=== PATIENT | female | born 1955 | race Caucasian/White ===

== ENCOUNTER 2019-01-25 11:41 | Emergency (ER) | payer BC ==
[2019-01-25] MEDS ORDERED: KETOROLAC 15 MG/ML VIAL IM STA (12:10)
--- NOTE | 2019-01-25 12:34 | ED Physician Documentation ---
PD HPI MAJOR TRAUMA - Stated complaint Stated Complaint: GLF/L SHOULDER INJ - Chief complaint Chief Complaint: Trauma Ext - History obtained from History obtained from: Patient - History of Present Illness Mechanism of injury: Fell Where injury occurred: Other (down 4 stairs) Injury(ies) location: Back, Left Uppper Extremity, Other (left lateral chest) Quality of pain: Pain, Throbbing, Sharp Associated symptoms: No: LOC, AMS, Amnesia, Seizures, Ear drainage, Nasal drainage, Neck pain, Weakness, Paresthesias, Dyspnea, Nausea / vomiting, Hematemesis, Abdominal distension Symptoms improve with: Rest Worsens with: Movement, Palpation Contributing factors: No: Anticoagulated, Intoxicated Similar symptoms before: Has not had sx before Recently seen: Not recently seen - Treatment prior to arrival Treatment prior to arrival: Took vicodin prior to arrival - Additional information Additional information: patient had an unwitnessed fall down 4 stairs last night onto her left upper back and shoulder. Reports back rib pain and clavicle/shoulder and arm pain. Denies LOC. Does not take blood thinners. She went to sleep and woke up with persistent rib pain. She has been ambulatory since then. Denies neck pain or injury Denies chest pain, sob. Denies abdominal pain. Denies mid back pain or spinal pain. Denies lower extremity pain. No weakness or numbness. Review of Systems Ten Systems: 10 systems reviewed and negative Constitutional: denies: Fever, Chills Cardiac: denies: Chest pain / pressure Respiratory: denies: Dyspnea, Cough GI: denies: Abdominal Pain, Nausea, Vomiting Skin: reports: Reviewed and negative Musculoskeletal: reports: Back pain, Extremity pain, Joint swelling. denies: Neck pain Neurologic: denies: Generalized weakness, Focal weakness, Numbness PD PAST MEDICAL HISTORY - Past Medical History Past Medical History: Yes Other Past Medical History: hemochromatosis, psoriatic arthritis - Allergies Allergies/Adverse Reactions: Allergies Allergy/AdvReac Type Severity Reaction Status Date / Time No Known Drug Allergies Allergy Verified 01/25/19 11:51 PD ED PE NORMAL - Vitals Vital signs reviewed: Yes - General General: Alert and oriented X 3, No acute distress, Well developed/nourished - HEENT HEENT: Atraumatic, PERRL, EOMI, Moist mucous membranes, Pharynx benign. No: Other (no signs of trauma) - Neck Neck: Supple, no meningeal sign, No bony TTP, No JVD - Cardiac Cardiac: RRR, No murmur, No gallop, No rub - Respiratory Respiratory: No respiratory distress, Clear bilaterally, Other (Left clavicle deformity, swelling. No anterior chest wall tenderness. Pt does have Left lateral chest wall tenderness.) - Abdomen Abdomen: Normal bowel sounds, Soft, Non tender, Non distended - Female Female : Deferred - Rectal Rectal: Deferred - Back Back: No CVA TTP, No spinal TTP, Other (left posterolateral thoracic rib tenderness) - Derm Derm: Normal color, Warm and dry, Other (mild L forearm abrasion ) - Extremities Extremities: No deformity, Normal ROM s pain, No edema, No calf tenderness / cord, Other (Reduced L shoulder movement due to pain. No deformity or tenderness of the shoulder, elbow or forearm/wrist.) - Neuro Neuro: Alert and oriented X 3, No motor deficit, No sensory deficit, Normal speech, Other (normal gait) Eye Opening: Spontaneous Motor: Obeys Commands Verbal: Oriented GCS Score: 15 - Psych Psych: Normal mood, Normal affect PD ED PE EXPANDED - General General: Alert, No acute distress, In Pain Results - Vitals Vitals: Vital Signs - 24 hr 01/25/19 01/25/19 01/25/19 11:51 14:15 14:52 Temperature 36.8 C Heart Rate 88 72 74 Respiratory 16 18 16 Rate Blood Pressure 122/65 121/75 128/81 H O2 Saturation 95 98 98 01/25/19 01/25/19 01/25/19 15:42 16:09 16:23 Temperature Heart Rate 78 75 82 Respiratory 18 16 16 Rate Blood Pressure 129/82 H 140/75 H 165/97 H O2 Saturation 98 96 98 01/25/19 01/25/19 01/25/19 16:30 16:35 17:04 Temperature Heart Rate 90 91 78 Respiratory 16 16 16 Rate Blood Pressure 157/78 H 147/82 H 118/82 H O2 Saturation 98 97 98 Oxygen O2 Source Room air - Labs Labs: Laboratory Tests 01/25/19 01/25/19 01/25/19 13:15 13:15 15:56 WBC 7.4 RBC 3.35 L Hgb 11.5 L Hct 32.9 L MCV 98.3 MCH 34.2 H MCHC 34.8 RDW 12.5 Plt Count 242 MPV 6.4 L Neut # (Auto) 5.9 Lymph # (Auto) 1.1 L [place] # (Auto) 0.3 Eos # (Auto) 0.0 Baso # (Auto) 0.0 Absolute Nucleated RBC 0.00 Nucleated RBC % 0.0 Sodium 130 L Potassium 4.0 Chloride 95 L Carbon Dioxide 23 Anion Gap 12.0 BUN 17 Creatinine 0.7 Estimated GFR (MDRD) 85 L Glucose 113 H Calcium 9.2 Total Bilirubin 0.5 Direct Bilirubin 0.1 AST 54 H ALT 50 Alkaline Phosphatase 89 Total Protein 8.6 H Albumin 4.3 Globulin 4.3 H Lipase 52 H Urine Color Urine Clarity Urine pH Ur Specific [place] Urine Protein Urine Glucose (UA) Urine Ketones Urine Occult Blood Urine Nitrite Urine Bilirubin Urine Urobilinogen Ur Leukocyte Esterase Urine RBC Urine WBC Ur Squamous Epith Cells Urine Bacteria Urine Casts Ur Microscopic Review Urine Culture Comments 01/25/19 15:57 WBC RBC Hgb Hct MCV MCH MCHC RDW Plt Count MPV Neut # (Auto) Lymph # (Auto) [place] # (Auto) Eos # (Auto) Baso # (Auto) Absolute Nucleated RBC Nucleated RBC % Sodium Potassium Chloride Carbon Dioxide Anion Gap BUN Creatinine Estimated GFR (MDRD) Glucose Calcium Total Bilirubin Direct Bilirubin AST ALT Alkaline Phosphatase Total Protein Albumin Globulin Lipase Urine Color YELLOW Urine Clarity HAZY Urine pH 6.0 Ur Specific [place] <=1.005 Urine Protein NEGATIVE Urine Glucose (UA) NEGATIVE Urine Ketones TRACE Urine Occult Blood MODERATE H Urine Nitrite NEGATIVE Urine Bilirubin NEGATIVE Urine Urobilinogen 0.2 (NORMAL) Ur Leukocyte Esterase NEGATIVE Urine RBC 0-5 Urine WBC 6-10 H Ur Squamous Epith Cells RARE Squamous Urine Bacteria Few Urine Casts 6-10 Hyaline Casts Ur Microscopic Review INDICATED Urine Culture Comments INDICATED mild anemia, mild hyonatremia - Rads (name of study) No standard instances Radiology: Final report received (L 3rd-12th rib fractures, L clavicle fracture displaced, no intraabdominal injury, negative head CT except for spehnoid sinusitis vs bleeding into sinus. ), See rad report Procedures - FAST exam (time) No standard instances FAST exam: No: Free fluid RUQ, Free fluid LUQ, Free fluid suprapubic, Pericardial effusion, Pneumothorax, right, Pneumothorax, left PD MEDICAL DECISION MAKING - ED course Complexity details: reviewed results, re-evaluated patient, considered differential, d/w patient, d/w vendor management consultant ED course: 63 y/o F with fall down 4 stairs last night onto back with multiple rib fractures 3-12 with L clavicle fracture and L pulmonary contusion. Requires transfer to Trauma center for admission, pain control, monitoring and pulmonary toilet. Given degree of injuries on CT pt sent back to CT for trauma marion scan. CT abd/pelvis is neg for acute injury. Pt only has 1 kidney. Was given multiple fluid boluses here and her creatinine is 0.7. CT head also neg. Spinal CTs negative for acute abnormality. Not currently requiring oxygen. Pain controlled with narcotics, lidoderm patch and ketamine here. Pt stable for transfer to [facility] via ground ALS. - Critical Care Time Includes: Direct patient care, Review records, Reassess patient (s), Coordinate care, Medical consult Data interpretation: Labs, CXR, See progress note (management of trauma pain, pulmonary contusion) Departure - Departure Disposition: 02 Transfer Acute Care Hosp Clinical Impression: Ribs, multiple fractures Qualifiers: Encounter type: initial encounter Fracture type: closed Laterality: left Qualified Code(s): S22.42XA - Multiple fractures of ribs, left side, initial en counter for closed fracture Clavicle fracture, shaft Qualifiers: Encounter type: initial encounter Fracture type: closed Fracture alignment: displaced Laterality: left Qualified Code(s): S42.022A - Displaced fracture of shaft of left clavicle, initial encounter for closed fracture Pulmonary contusion Qualifiers: Encounter type: initial encounter Laterality: left Qualified Code(s): S27.321A - Contusion of lung, unilateral, initial encounter Condition: Fair Record reviewed to determine appropriate education?: Yes
[2019-01-25] MEDS ORDERED: HYDROmorphone 1 MG/ML CARPUJECT IVP STA ×4 (13:09→18:10)
[2019-01-25] MEDS ORDERED: IOVERSOL 320 100 ML VIAL IVP ONE ×4 (13:22→16:46)
[2019-01-25 13:24] LABS: BASOPHILS % (AUTO) 0.2 %; EOSINOPHILS % (AUTO) 0.1 %; HGB - HEMOGLOBIN 11.5 g/dL (12.0-16.0); LYMPHOCYTES # (AUTO) 1.1 10^3/uL (1.5-3.5); LYMPHOCYTES % (AUTO) 14.6 %; MEAN CORPUSCULAR HEMOGLOBIN 34.2 pg (27.0-31.0); MEAN CORPUSCULAR HGB CONC 34.8 g/dL (32.0-36.0); MEAN CORPUSCULAR VOLUME 98.3 fL (81.0-99.0); MEAN PLATELET VOLUME 6.4 fL (7.9-10.8); MONOCYTES # (AUTO) 0.3 10^3/uL (0.0-1.0); MONOCYTES % (AUTO) 4.4 %; NEUTROPHILS # (AUTO) 5.9 10^3/uL (1.5-6.6); NEUTROPHILS % (AUTO) 80.7 %; PLT - PLATELET COUNT 242 10^3/uL (130-450); RED BLOOD COUNT 3.35 10^6/uL (4.20-5.40); RED CELL DISTRIBUTION WIDTH 12.5 % (12.0-15.0); WHITE BLOOD COUNT 7.4 x10^3/uL (4.8-10.8)
[2019-01-25 13:36] LABS: CREATININE 0.7 mg/dL (0.4-1.0)
[2019-01-25] MEDS ORDERED: ONDANSETRON 4 MG/2 ML VIAL IVP STA (13:37)
[2019-01-25] MEDS ORDERED: SODIUM CHLORIDE 0.9% 1,000 ML IV ONE ×3 (13:37→16:35)
--- NOTE | 2019-01-25 13:40 | XRAY Report ---
Reason: fall down stairs, posterior L rib pain Procedure Date: 01/25/2019 Accession Number: [id number] / [id number] Procedure: XR - Ribs w/PA Chest LT CPT Code: FULL RESULT: EXAM: LEFT RIB RADIOGRAPHY EXAM DATE: 01/25/2019 01:01 PM. CLINICAL HISTORY: Fall down stairs, posterior L rib pain. COMPARISON: None. TECHNIQUE: 1 view of the chest and 2 views of the ribs. FINDINGS: Bones: Angulated fractures of the left third through eighth ribs. Displaced fracture of the mid left clavicle. Lungs: No focal opacities. No pneumothorax. No pleural effusions. Mediastinum: Heart and mediastinal contours are unremarkable. Other: None. IMPRESSION: 1. Angulated fractures of the left third through eighth ribs. 2. Displaced fracture of the mid left clavicle. RADIA
--- NOTE | 2019-01-25 13:42 | XRAY Report ---
Reason: shoulder pain, fall down stairs Procedure Date: 01/25/2019 Accession Number: [id number] / [id number] Procedure: XR - Shoulder 2 View LT CPT Code: FULL RESULT: EXAM: LEFT SHOULDER RADIOGRAPHY EXAM DATE: 01/25/2019 01:01 PM. CLINICAL HISTORY: Shoulder pain, fall down stairs. COMPARISON: None. TECHNIQUE: 2 views. FINDINGS: Bones: Angulated fractures of the left first through eighth ribs. Angulated fracture of the mid left clavicle. Joints: The glenohumeral and acromioclavicular joints are normal. Soft tissues: The visualized hemithorax is unremarkable. No soft tissue swelling. IMPRESSION: 1. Angulated fractures of the left first through eighth ribs. 2. Angulated fracture of the mid left clavicle. RADIA
[2019-01-25 13:44] LABS: CALCIUM 9.2 mg/dL (8.5-10.3)
--- NOTE | 2019-01-25 14:33 | CT Report ---
Reason: rib fractures, upper left back pain Procedure Date: 01/25/2019 Accession Number: [id number] / [id number] Procedure: CT - CHEST W CPT Code: FULL RESULT: EXAM: CT CHEST EXAM DATE: 01/25/2019 02:12 PM. CLINICAL HISTORY: Rib fractures, upper left back pain. COMPARISONS: RIBS W/PA CHEST LT 01/25/2019 12:27 PM. TECHNIQUE: Routine helical CT imaging was performed through the chest. IV contrast: 80 mL Optiray 320. Reconstructions: Coronal and sagittal. In accordance with CT protocol optimization, one or more of the following dose reduction techniques were utilized for this exam: automated exposure control, adjustment of mA and/or KV based on patient size, or use of iterative reconstructive technique. FINDINGS: Lungs/Pleura: There is left basilar greater than right basilar pulmonary consolidation, mild amount without pleural effusion or pneumothorax detected. Mediastinum: Normal. No adenopathy or masses. The heart and great vessels are normal. Bones: Comminuted midclavicular fracture on the left, redemonstrated. The left 3rd through 12th ribs are confirmed fractured. Visualized Abdomen: Status post left nephrectomy with no splenic or hepatic laceration detected, both organs are fully in field of view. Other: None. IMPRESSION: Fractures of the left third through 12th ribs. No underlying pneumothorax or hemothorax. Midclavicular fracture on the left. Small amount of consolidation, pulmonary contusion versus atelectasis due to splinting. RADIA
[2019-01-25] MEDS ORDERED: LIDOCAINE PATCH 5% TOP STA (14:49)
[2019-01-25 16:11] LABS: BILIRUBIN,URINE NEGATIVE (NEGATIVE); GLUCOSE, URINE (UA) NEGATIVE (NEGATIVE); KETONES,URINE (UA) TRACE mg/dL (NEGATIVE); LEUKOCYTE ESTERASE, URINE NEGATIVE (NEGATIVE); NITRITE,URINE NEGATIVE (NEGATIVE); OCCULT BLOOD,URINE MODERATE (NEGATIVE); PROTEIN,URINE NEGATIVE (NEGATIVE); UROBILINOGEN,URINE 0.2 (NORMAL) E.U./dL (NORMAL)
[2019-01-25] MEDS ORDERED: KETAMINE 500 MG/10 ML VIAL IVP STA (16:14)
[2019-01-25 16:26] LABS: ALBUMIN 4.3 g/dL (3.2-5.5); BILIRUBIN,DIRECT 0.1 mg/dL (0.1-0.5); BILIRUBIN,TOTAL 0.5 mg/dL (0.2-1.0); TOTAL PROTEIN 8.6 g/dL (6.7-8.2)
[2019-01-25 16:35] LABS: CLARITY,URINE HAZY (CLEAR); RBC,URINE 0-5 /HPF (0-5); SQUAMOUS EPITHELIAL CELL,UR RARE Squamous (<= Few)
[2019-01-25 16:36] LABS: BACTERIA,URINE Few /HPF (None Seen); CASTS, URINE 6-10 Hyaline Casts /LPF
--- NOTE | 2019-01-25 17:40 | CT Report ---
Reason: rib fractures Procedure Date: 01/25/2019 Accession Number: [id number] / [id number] Procedure: CT - Abdomen/Pelvis W CPT Code: FULL RESULT: EXAM: CT ABDOMEN AND PELVIS EXAM DATE: 01/25/2019 05:17 PM. CLINICAL HISTORY: Status post fall, rib fractures, rule out abdominal pelvic trauma. COMPARISONS: Correlation with CHEST W/ 01/25/2019 2:03 PM. TECHNIQUE: Routine helical CT imaging was performed through the abdomen and pelvis. IV contrast: 80 cc Optiray 320. Enteric contrast: No. Reconstructions: Coronal and sagittal. In accordance with CT protocol optimization, one or more of the following dose reduction techniques were utilized for this exam: automated exposure control, adjustment of mA and/or KV based on patient size, or use of iterative reconstructive technique. FINDINGS: Lung Bases: Some bilaterally symmetric dependent atelectasis present at the lung bases. No pneumothorax or effusions identified. No consolidation or edema. Liver: Normal. No masses. Gallbladder/Bile Ducts: Unremarkable. Spleen: Normal. Pancreas: Normal. Adrenal Glands: Normal. Kidneys: The left kidney is surgically absent with no mass lesion in the renal fossa. Mild physiologic hydronephrosis and hydroureter has developed, new compared to the recently performed chest CT consistent with elevated fluid from contrast administration. Extensive excreted contrast now present in the collecting system. No perinephric edema. No evidence for renal trauma. Peritoneal Cavity/Bowel: Mild primarily distal colonic diverticulosis present. No bowel obstruction, wall thickening or mass lesion evident. No free fluid, free air or adenopathy. The appendix is well visualized and normal. Pelvic Organs: The urinary bladder is partially obscured by artifact from bilateral hip prosthesis. Excreted contrast fills the bladder lumen. No wall thickening or evidence of rupture. The rectum and vaginal cuff are within normal limits. The uterus is surgically absent. No adnexal masses. Vasculature: No aneurysms or other significant abnormality. Bones: No vertebral body compression fracture or other spinal fracture identified. Bilateral hip prosthesis are normally located. Multiple posterior left lower rib fractures identified as seen on CT. Other: None. IMPRESSION: 1. No acute intra-abdominal trauma evident. No free air. 2. Surgically absent left kidney. 3. Multiple left lower rib fractures as seen on concurrent chest CT. 4. Bibasilar atelectasis evident without evidence of pneumothorax. 5. Mild distal colonic diverticulosis. RADIA
--- NOTE | 2019-01-25 17:42 | CT Report ---
Reason: trauma, fall down stairs Procedure Date: 01/25/2019 Accession Number: [id number] / [id number] Procedure: CT - HEAD WO CPT Code: FULL RESULT: EXAM: CT HEAD EXAM DATE: 01/25/2019 05:17 PM. CLINICAL HISTORY: Trauma, pain. COMPARISON: None. TECHNIQUE: Multiaxial CT images were obtained from the foramen magnum to the vertex. Reformats: Sagittal and coronal. IV contrast: None. In accordance with CT protocol optimization, one or more of the following dose reduction techniques were utilized for this exam: automated exposure control, adjustment of mA and/or KV based on patient size, or use of iterative reconstructive technique. FINDINGS: Parenchyma: No intraparenchymal hemorrhage. No evidence of mass, midline shift, or CT findings of acute infarction. Hinojosa-white differentiation is distinct. Diffuse chronic microangiopathic white matter changes. Extraaxial Spaces: Normal for age. No subdural or epidural collections. Ventricles: The ventricles and cortical sulci are enlarged, consistent with age-related tissue loss. Sinuses and orbits: Sphenoid sinus air-fluid level. Minimal mucosal thickening in other visualized paranasal sinuses. Bones: Unremarkable. Other: None. IMPRESSION: 1. Sphenoid sinusitis versus bleeding into the sinus. 2. Generalized age-related cortical atrophic changes without evidence of acute intracranial abnormality. RADIA
--- NOTE | 2019-01-25 17:57 | CT Report ---
Reason: trauma Procedure Date: 01/25/2019 Accession Number: [id number] / [id number] Procedure: CT - CERVICAL SPINE WO CPT Code: FULL RESULT: EXAM: CT CERVICAL SPINE WITHOUT CONTRAST DATE: 01/25/2019 05:17 PM. HISTORY: Trauma. COMPARISONS: Chest CT earlier today. TECHNIQUE: Thin-section axial images were acquired of the cervical spine without contrast. Post-processing: Coronal and sagittal reformats. Other: None. In accordance with CT protocol optimization, one or more of the following dose reduction techniques were utilized for this exam: automated exposure control, adjustment of mA and/or KV based on patient size, or use of iterative reconstructive technique. FINDINGS: Alignment: Mild thoracic dextroscoliosis, question secondary to positioning. Minimal anterior listhesis C3 on C4. And possibly C4 on C5. Bones: No fracture or bone lesion. Interspace Levels/Facets: C1-C2 throughC7-T1: Degenerative disk space narrowing most marked at C5-C6 and C6-C7. Mild scattered degenerative facet joint changes. Paraspinal soft tissues: The trachea is now increasingly deviated to the right in comparison to earlier. Left first and second rib fractures and comminuted left clavicle fracture. Increasing soft tissue density/subcutaneous edema left neck likely related to hemorrhage. Other: Membrane thickening/possible air-fluid levels sphenoid sinus. Mastoid air cells are grossly clear. IMPRESSION: 1. Degenerative change cervical spine without superimposed acute cervical spine fracture. 2. Left first and second posterior rib and left clavicle fractures associated with increasing soft tissue edema left neck, likely secondary to hemorrhage. 3. Increasing tracheal deviation to the right compared with earlier today. Suggest correlation with chest x-ray. 4. Air-fluid levels sphenoid sinus. RADIA
--- NOTE | 2019-01-25 18:00 | CT Report ---
Reason: trauma Procedure Date: 01/25/2019 Accession Number: [id number] / [id number] Procedure: CT - THORACIC SPINE WO CPT Code: FULL RESULT: EXAM: CT THORACIC SPINE WITHOUT CONTRAST EXAM DATE: 01/25/2019 05:17 PM. CLINICAL HISTORY: Status post fall, rib fractures, rule out spinal fracture. COMPARISONS: CHEST W/ 01/25/2019 2:03 PM. TECHNIQUE: Thin-section axial images were acquired of the thoracic spine from C7 to L1 without contrast. Post-processing: Coronal and sagittal reformats. Other: None. In accordance with CT protocol optimization, one or more of the following dose reduction techniques were utilized for this exam: automated exposure control, adjustment of mA and/or KV based on patient size, or use of iterative reconstructive technique. FINDINGS: Alignment: A mild biphasic thoracic scoliosis present. No spondylolisthesis. Bones: The vertebral bodies and posterior elements of the thoracic spine appear intact. No significant bony lesions evident. As noted on recent chest CT, there are multiple left-sided posterior lateral rib fractures involving ribs 1 through 11. No right-sided rib fractures identified on the field of view of this exam. Disk Levels/Facets: Moderate disk space loss and degenerative disease present at the T4-T5 level and mild disease at T3-T4 and T5-T10. No significant facet disease. Musculature: Normal. No fatty atrophy. Other: The visualized mediastinum is unremarkable. No pneumothorax evident. Bibasilar atelectasis noted. IMPRESSION: 1. No thoracic spine fracture or listhesis. 2. Mild biphasic thoracic scoliosis. 3. Multiple left sided rib fractures involving at least ribs 1 through 11. 4. Mild to moderate thoracic degenerative disk disease worst at T4-T5. RADIA
[2019-01-25 18:12] VITALS: BP 123/68
--- NOTE | 2019-01-25 18:22 | CT Report ---
Reason: trauma Procedure Date: 01/25/2019 Accession Number: [id number] / [id number] Procedure: CT - LUMBAR SPINE WO CPT Code: FULL RESULT: EXAM: CT LUMBAR SPINE REFORMATTED EXAM EXAM DATE: 01/25/2019 05:17 PM. CLINICAL HISTORY: Trauma. COMPARISONS: None. TECHNIQUE: Sagittal, coronal and axial CT images of the lumbar spine were reformatted from CT of the abdomen and pelvis with contrast the same day without additional contrast. Other: None. In accordance with CT protocol optimization, one or more of the following dose reduction techniques were utilized for this exam: automated exposure control, adjustment of mA and/or KV based on patient size, or use of iterative reconstructive technique. FINDINGS: 5 lumbar type vertebral bodies are used for this dictation. Most caudal rib-bearing vertebral body labeled T12. Spinous processes, articular processes, pedicles, facet joints, transverse processes appear intact. No significant spinal canal narrowing. Prevertebral and perivertebral soft tissue appear unremarkable. Facet arthropathies at L3-L4, L4-L5 and L5-S1. No significant foraminal narrowing. Mild bilateral foraminal narrowing at L4-L5 and L5-S1. Sacrum, coccyx appear normal. Postsurgical changes of retroperitoneal dissections bilaterally and left nephrectomy. Incidental sigmoid diverticulosis without evidence for diverticulitis. Contrast within the bladder and left renal collecting systems. Redemonstrated is mildly prominent common bile duct measuring up to 8 mm. Gallbladder appears remarkable. Bilateral hip replacements. IMPRESSION: No fractures or subluxation. Multilevel facet degenerative changes at L3-L4, L4-L5 and L5-S1. RADIA
== END 2019-01-25 18:17 | disposition short-term general hospital (02) ==
LOC: ED 11:41
DX: S22.42XA Multiple fractures of ribs, left side, initial encounter for closed fracture (principal); S27.321A Contusion of lung, unilateral, initial encounter; S42.022A Displaced fracture of shaft of left clavicle, initial encounter for closed fracture; S50.812A Abrasion of left forearm, initial encounter; W10.9XXA Fall (on) (from) unspecified stairs and steps, initial encounter; M48.02 Spinal stenosis, cervical region; J32.3 Chronic sphenoidal sinusitis
CPT/HCPCS: 36415; 70450; 71101; 71260; 72125; 72128; 72131; 73030; 74177; 80048; 80076; 81001; 83690; 85025; 87086; 87181; 96361; 96372; 96374; 96375; 96376; 99284; 99291; A9270; J1170; Q9967; 81003; 99285